=== PATIENT | female | born 1990 ===

== ENCOUNTER 2017-08-09 11:16 | Emergency (ER) | payer OTHER ==
[2017-08-09 11:20] VITALS: BP 121/72; PULSE 96; RESP 16; TEMP 98; O2SAT 99
--- NOTE | 2017-08-09 11:30 | ED PDOC ---
Lower Extremity Pain/Injury Time Seen by Provider: 08/09/17 11:29 Chief Complaint (Nursing): Lower Extremity Problem/Injury Chief Complaint (Provider): foot pain History Per: Patient Additional Complaint(s): 26-year-old female with no past medical history presents to emergency Department with pain to left ankle status post trip and fall last night. Patient denies head injury or loss of consciousness. She is able to bear some weight but has pain when doing so. No associated foot pain, no associated numbness or tingling to the affected area. Patient has not taken anything for pain prior to arrival. No medical attention sought last night after fall. Past Medical History Reviewed: Historical Data, Nursing Documentation, Vital Signs Vital Signs: Last Vital Signs Temp 98.0 F 08/09/17 11:18 Pulse 96 H 08/09/17 11:18 Resp 16 08/09/17 11:18 BP 121/72 08/09/17 11:18 Pulse Ox 99 08/09/17 11:18 - Medical History PMH: No Chronic Diseases - Surgical History Surgical History: No Surg Hx - Family History Family History: States: No Known Family Hx - Living Arrangements Living Arrangements: With Family - Social History Current smoker - smoking cessation education provided: No Alcohol: None Drugs: Denies - Home Medications Home Medications: Ambulatory Orders Medication Instructions Recorded Ibuprofen [Motrin Tab] 800 mg PO Q8 PRN #20 tab 08/09/17 - Allergies Allergies/Adverse Reactions: Allergies Allergy/AdvReac Type Severity Reaction Status Date / Time No Known Allergies Allergy Verified 08/09/17 11:18 Wells Criteria for PE - Wells Criteria for Pulmonary Embolism Clinical Signs and Symptoms of DVT: No P.E is #1 Diagnosis, or Equally Likely: No Heart Rate >100: No Immobilization at least 3 days;Surgery previous 4 weeks: No Previous, objectively diagnosed PE or DVT: No Hemoptysis: No Malignancy w/treatment within 6 months, or palliative: No Total Score: 0 Review of Systems ROS Statement: Except As Marked, All Systems Reviewed And Found Negative Musculoskeletal: Positive for: Other (left ankle injury s/p fall last night) Physical Exam - Reviewed Nursing Documentation Reviewed: Yes Vital Signs Reviewed: Yes - Physical Exam Appears: Positive for: Well, Non-toxic, No Acute Distress Skin: Negative for: Rash Eye Exam: Positive for: Normal appearance Extremity: Positive for: Other (Mild swelling and tenderness to left lateral malleolus with decreased range of motion of left ankle, no obvious bony deformity, nontender left foot, normal distal sensation, normal capillary refill ) Neurologic/Psych: Positive for: Alert, Oriented - Laboratory Results Urine POC: Negative - ECG O2 Sat by Pulse Oximetry: 99 Pulse Ox Interpretation: Normal - Other Rad Left ankle x-ray X-Ray: Interpreted by Me, Viewed By Me X-Ray Interpretation: no fx, no dis Medical Decision Making Medical Decision Makin26 year old with left ankle injury Plan: test X-ray left ankle PO motrin Patient is aware of x-ray results. She reports improvement pain after Motrin dose given. Crutches provided, see procedure note. Patient given prescription for Motrin and was referred to podiatry clinic for follow-up. Procedures - Splinting Location: left ankle Pre-Made Type: mamie wrap and aircast Pre-Proc Neuro Vasc Exam: normal Post-Proc Neuro Vasc Exam: normal Disposition - Clinical Impression Clinical Impression: Ankle sprain - Patient ED Disposition Is Patient to be Admitted: No Counseled Patient/Family Regarding: Studies Performed, Diagnosis, Need For Followup, Rx Given - Disposition Referrals: Podiatry Clinic [Outside] Disposition: Routine/Home Disposition Time: 13:11 Condition: STABLE Additional Instructions: Ice and elevate affected area. Take prescription meds for pain relief as needed as directed. Follow-up with podiatry clinic for any persistent symptoms. Prescriptions: Ibuprofen [Motrin Tab] 800 mg PO Q8 PRN #20 tab PRN Reason: Pain, Moderate (4-7) Instructions: Ankle Sprain (ED), Ankle Stirrup Splint (ED), Crutch Instructions (ED) Forms: [email or web address] ([place]ian)
--- NOTE | 2017-08-09 14:02 | RAD ---
PROCEDURE: Left Ankle Radiographs. HISTORY: trauma COMPARISON: None FINDINGS: BONES: No acute fracture or destructive bony lesion identified. JOINTS: Normal. No osteoarthritis. Ankle mortise maintained. Talar dome intact SOFT TISSUES: Normal. OTHER FINDINGS: None. IMPRESSION: Normal left ankle radiographs.
== END 2017-08-09 13:39 | disposition home or self-care (01) ==
LOC: H.ER 11:16
DX: S93.402A Sprain of unspecified ligament of left ankle, initial encounter (principal); W01.0XXA Fall on same level from slipping, tripping and stumbling without subsequent striking against object, initial encounter; Y92.89 Other specified places as the place of occurrence of the external cause